=== PATIENT | male | born 1990 | race Hispanic/Latino ===

== ENCOUNTER → 2020-06-09 | Outpatient (CLI) | payer OTHER ==
--- NOTE | 2020-06-10 02:18 | REP ---
INDICATION: RECURRENT FRACTURE RT #[address] HOLDING AREA COMPARISON: None. TECHNIQUE: AP, lateral, bilateral oblique views right 3rd digit. FINDINGS: There is a mildly displaced intra-articular corner fracture along the dorsal aspect at the base of the distal phalanx which projects into the interphalangeal joint space with overlying soft tissue swelling. IMPRESSION: Intra-articular fracture fragment from the dorsal base of the distal phalanx. <Electronically signed by Wilbert Lambert > 06/10/20 0216
== END ==
LOC: M RAD 08:38
PROVIDERS: ATTEND Surgery
DX: M84.444A Pathological fracture, right finger(s), initial encounter for fracture (principal)